=== PATIENT | female | born 1955 | race Caucasian/White ===

== ENCOUNTER 2021-06-11 17:10 | Inpatient (IN) | payer BC ==
[~2021-06-11] VITALS: Ht 152.4 cm; Wt 74.5 kg
[2021-06-11] MEDS ORDERED: LISI20TA26 PO (17:23)
[2021-06-11] MEDS ORDERED: METO50TA15 PO (17:23)
[2021-06-11] MEDS ORDERED: LABETALOL HCL 20 MG/4 ML VIAL IV ONE (17:30)
[2021-06-11] MEDS ORDERED: NITRO DRIP 25000 MCG/D5W 250 ML IV SCH (17:30)
[2021-06-11 17:49] LABS: BASOPHILS % (AUTO) 0 % (0-10); EOSINOPHILS # (AUTO) 0.2 10^3/uL (0.0-0.3); EOSINOPHILS % (AUTO) 3 % (0-10); HEMATOCRIT 42 % (35-52); HEMOGLOBIN 13.6 g/dL (11.5-16.0); LYMPHOCYTES # (AUTO) 1.6 10^3/uL (1.0-4.0); LYMPHOCYTES % (AUTO) 23 % (12-44); MEAN CORPUSCULAR HEMOGLOBIN 27 pg (25-34); MEAN CORPUSCULAR HGB CONC 33 g/dL (32-36); MEAN CORPUSCULAR VOLUME 81 fL (80-99); MEAN PLATELET VOLUME 10.2 fL (9.0-12.2); MONOCYTES # (AUTO) 0.7 10^3/uL (0.0-1.0); MONOCYTES % (AUTO) 10 % (0-12); NEUTROPHILS # (AUTO) 4.6 10^3/uL (1.8-7.8); NEUTROPHILS % (AUTO) 64 % (42-75); PLATELET COUNT 331 10^3/uL (130-400); WHITE BLOOD COUNT 7.2 10^3/uL (4.3-11.0)
[2021-06-11 17:55] LABS: ALBUMIN 3.8 GM/DL (3.2-4.5); POTASSIUM 4.2 MMOL/L (3.6-5.0)
[2021-06-11 17:56] LABS: CALCIUM 9.2 MG/DL (8.5-10.1)
[2021-06-11 17:57] LABS: TOTAL PROTEIN 6.6 GM/DL (6.4-8.2)
[2021-06-11 17:59] LABS: BILIRUBIN,TOTAL 0.2 MG/DL (0.1-1.0)
[2021-06-11 18:01] LABS: CREATININE SERUM 1.82 MG/DL (0.60-1.30)
--- NOTE | 2021-06-11 18:11 | ED Cardiac General ---
History of Present Illness General Chief Complaint: Cardiac/General Problems Stated Complaint: HIGH BLOOD PRESSURE Nursing Triage Note: SENT OVER FROM [facility] IN HYPERTENSIVE CRISIS BP 240/120, 260/110/, 280/120, 300/140. PT DENIES SX E STATES SHE WENT THERE TO HAVE HER MEDS REFILLED BECUASE SHE HAS BEEN OUT OF HER BP MEDS LISINOPRIL AND METOPROPOL X4 DAYS. History of Present Illness Date Seen by Provider: Jun 11, 2021 Time Seen by Provider: 18:11 Initial Comments 65 yr F with PMH of HTN, with home medications of lisinopril 20 mg and metoprolol which she has run out of for the past couple of weeks, and has been sent over from urgent care for high blood pressure. In the ER the blood BP was unreadable and above 280 systolic. She last refilled BP meds on April 22. Denies syncope, chest pain, SOB, palpitations, abdominal pain, nausea, vomiting, visual disturbances. Allergies and Home Medications Allergies Coded Allergies: No Known Drug Allergies (Unverified , 06/11/21) Patient Home Medication List Home Medication List Reviewed: Yes Lisinopril (Lisinopril) 20 Mg Tablet, (Reported) Entered as Reported by: REILLY DUQUE on 06/11/211722 Last Action: New Order Metoprolol Tartrate (Metoprolol Tartrate) 50 Mg Tablet, (Reported) Entered as Reported by: REILLY DUQUE on 06/11/211722 Last Action: New Order Review of Systems Review of Systems Constitutional: other (elevated BP) EENTM: No Symptoms Reported Respiratory: No Symptoms Reported Cardiovascular: No Symptoms Reported Gastrointestinal: No Symptoms Reported Genitourinary: No Symptoms Reported Musculoskeletal: no symptoms reported Skin: no symptoms reported Psychiatric/Neurological: No Symptoms Reported Endocrine: No Symptoms Reported Hematologic/Lymphatic: No Symptoms Reported Past Nkafupc-Uiutnv-Ppmkfp Hx Patient Social History Smoking Status: Former Smoker Substance use?: No Alcohol Use?: No Immunizations Up To Date 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 oz. 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 Norm as Tested Skin: Normal Color Progress/Results/Core Measures Results/Orders Lab Results Laboratory Tests Test 06/11/21 17:28 Range/Units White Blood Count 7.2 4.3-11.0 10^3/uL Red Blood Count 5.14 H 3.80-5.11 10^6/uL Hemoglobin 13.6 11.5-16.0 g/dL Hematocrit 42 35-52 % Mean Corpuscular Volume 81 80-99 fL Mean Corpuscular Hemoglobin 27 25-34 pg Mean Corpuscular Hemoglobin Concent 33 32-36 g/dL Red Cell Distribution Width 14.3 10.0-14.5 % Platelet Count 331 130-400 10^3/uL Mean Platelet Volume 10.2 9.0-12.2 fL Immature Granulocyte % (Auto) 0 % Neutrophils (%) (Auto) 64 42-75 % Lymphocytes (%) (Auto) 23 12-44 % Monocytes (%) (Auto) 10 0-12 % Eosinophils (%) (Auto) 3 0-10 % Basophils (%) (Auto) 0 0-10 % Neutrophils # (Auto) 4.6 1.8-7.8 10^3/uL Lymphocytes # (Auto) 1.6 1.0-4.0 10^3/uL Monocytes # (Auto) 0.7 0.0-1.0 10^3/uL Eosinophils # (Auto) 0.2 0.0-0.3 10^3/uL Basophils # (Auto) 0.0 0.0-0.1 10^3/uL Immature Granulocyte # (Auto) 0.0 0.0-0.1 10^3/uL Sodium Level 140 135-145 MMOL/L Potassium Level 4.2 3.6-5.0 MMOL/L Chloride Level 106 98-107 MMOL/L Carbon Dioxide Level 20 L 21-32 MMOL/L Anion Gap 14 5-14 MMOL/L Blood Urea Nitrogen 28 H 7-18 MG/DL Creatinine 1.82 H 0.60-1.30 MG/DL Estimat Glomerular Filtration Rate 31 BUN/Creatinine Ratio 15 Glucose Level 102 70-105 MG/DL Calcium Level 9.2 8.5-10.1 MG/DL Corrected Calcium 9.4 8.5-10.1 MG/DL Total Bilirubin 0.2 0.1-1.0 MG/DL Aspartate Amino Transf (AST/SGOT) 22 5-34 U/L Alanine Aminotransferase (ALT/SGPT) 24 0-55 U/L Alkaline Phosphatase 71 40-136 U/L B-Type Natriuretic Peptide 266.8 H <100.0 PG/ML Total Protein 6.6 6.4-8.2 GM/DL Albumin 3.8 3.2-4.5 GM/DL TSH Coleman Testing 1.15 0.35-4.94 UIU/ML My Orders Orders - KEYANA BROWN MD Lisinopril Tablet (Zestril Tablet) (06/11/21 18:45) Medications Given in ED Current Medications Medications Dose Ordered Sig/Lisa Route Start Time Stop Time Status Last Admin Dose Admin Labetalol HCl 20 mg ONCE ONCE IV 06/11/21 17:30 06/11/21 17:31 DC 06/11/21 17:33 20 MG Vital Signs/I&O 06/11/21 06/11/21 06/11/21 17:10 17:46 17:53 Temp 36.3 Pulse 70 83 77 Resp 16 B/P (MAP) /132 219/94 211/95 Pulse Ox 98 O2 Delivery Room Air Blood Pressure Mean: 133 Progress Progress Note : Progress Note 1. HYPERTENSIVE URGENCY: - Labetalol 20mg iv and Nitro drip in ER - Lisinopril 20mg oral added - Nitro stopped since systolic BP is now 190, and do not want to drop BP much more than 25%. - Discussed with Dr Figueroa and admitted to observation - No symptoms at this time. Initial ECG Impression Date: Jun 11, 2021 Initial ECG Impression Time: 17:19 Initial ECG Rate: 79 Initial ECG Rhythm: Normal Sinus Initial ECG Intervals: Normal Initial ECG Impression: Nonspecific Changes Departure Communication (Admissions) Time/Spoke to Admitting Phy: 18:[address] Luke,man and accepted to observation unit with telemetry Impression Primary Impression: Hypertensive urgency Disposition: 30 STILL A PATIENT Condition: Stable Admissions Decision to Admit Reason: Admit from ER (General) Decision to Admit/Date: Jun 11, 2021 Time/Decision to Admit Time: 18:30 KEYANA BROWN MD Jun 11, 2021 18:11
[2021-06-11 18:23] LABS: TSH (THYROID ANALYZER) 1.15 UIU/ML (0.35-4.94)
[2021-06-11] MEDS ORDERED: lisINopril 20 MG (PRINIVIL) TABLET PO ONE (18:45)
[2021-06-11 20:21] VITALS: BP 235/102
[2021-06-11] MEDS: NITRO DRIP 25000 MCG/D5W 250 ML IV SCH ×2 (20:59→22:05)
[2021-06-11] MEDS ORDERED: MELATONIN 3 MG TABLET PO PRN (21:00)
[2021-06-11] MEDS ORDERED: diphenhydrAMINE 25 MG TAB (BENADRYL) PO PRN (21:00)
[2021-06-11] MEDS ORDERED: ANTACID SUSP 30 ML UDC (MYLANTA) PO PRN (21:00)
[2021-06-11] MEDS ORDERED: ONDANSETRON 4 MG (ZOFRAN) ORAL DISSOLVE TAB PO PRN (21:00)
[2021-06-11] MEDS ORDERED: polyethylene glycoL POWDER 17 GM (MIRALAX) PACK PO PRN (21:00)
[2021-06-11] MEDS ORDERED: ACETAMINOPHEN 325 MG TABLET PO PRN (21:00)
[2021-06-11] MEDS ORDERED: ONDANSETRON 4 MG/2 ML (SDV) Z0FRAN IV PRN (21:00)
[2021-06-11] MEDS ORDERED: ENOXAPARIN 40 MG/0.4 ML (LOVENOX) SYR SC SCH (21:00)
[2021-06-11] MEDS ORDERED: ONDANSETRON 4 MG/2 ML (SDV) Z0FRAN ONE (21:49)
--- NOTE | 2021-06-11 21:54 | Tele-ICU Progress Note ---
Progress Note 65F with HTN who has been out of lisinopril and metoprolol x4 days, went to clinic for refil and reported to have BP >280 systolic. Sent to ED. Has been asymptomatic. - HTN urgency: currently on nitro gtt, will change to cardene for goal SBP 170- 190. Continue home lisinopril and labetalol. - MANE vs CKD: baseline unknown. Check UA with micro. Trend renal function, UOP. Focused Exam Height, Weight, BMI Height: '" Weight: lbs. oz. kg; 31.00 BMI Method: ALEX HODGE MD Jun 11, 2021 21:54
[2021-06-11] MEDS ORDERED: niCARdipine IV FOR DRIP 50 MG KIT ONE (21:58)
[2021-06-11] MEDS ORDERED: NS (IVPB) 250 ML ONE (21:58)
[2021-06-11] MEDS ORDERED: meTOprolol TARTRATE 25 MG (LOPRESSOR) TABLET ONE (21:59)
[2021-06-11 22:04] LABS: BILIRUBIN,URINE NEGATIVE (NEGATIVE); CLARITY,URINE CLEAR; COLOR,URINE YELLOW; GLUCOSE, URINE (UA) NEGATIVE (NEGATIVE); KETONES,URINE NEGATIVE (NEGATIVE); LEUKOCYTE ESTERASE ,URINE NEGATIVE (NEGATIVE); NITRITE,URINE NEGATIVE (NEGATIVE); PROTEIN,URINE 3+ (NEGATIVE)
[2021-06-11] MEDS: meTOprolol TARTRATE 25 MG (LOPRESSOR) TABLET PO SCH (22:04)
[2021-06-11] MEDS: niCARdipine IV 50 MG in NS (IVPB) 230 ML IV SCH (22:05)
[2021-06-11] MEDS: lisINopril 20 MG (PRINIVIL) TABLET PO SCH (22:11)
[2021-06-11 22:15] LABS: BACTERIA,URINE TRACE /HPF
[2021-06-12 04:28] LABS: BASOPHILS % (AUTO) 0 % (0-10); EOSINOPHILS # (AUTO) 0.1 10^3/uL (0.0-0.3); EOSINOPHILS % (AUTO) 1 % (0-10); HEMATOCRIT 40 % (35-52); HEMOGLOBIN 12.9 g/dL (11.5-16.0); LYMPHOCYTES # (AUTO) 1.6 10^3/uL (1.0-4.0); LYMPHOCYTES % (AUTO) 17 % (12-44); MEAN CORPUSCULAR HEMOGLOBIN 27 pg (25-34); MEAN CORPUSCULAR HGB CONC 32 g/dL (32-36); MEAN CORPUSCULAR VOLUME 82 fL (80-99); MEAN PLATELET VOLUME 10.2 fL (9.0-12.2); MONOCYTES # (AUTO) 0.7 10^3/uL (0.0-1.0); MONOCYTES % (AUTO) 8 % (0-12); NEUTROPHILS # (AUTO) 6.6 10^3/uL (1.8-7.8); NEUTROPHILS % (AUTO) 73 % (42-75); PLATELET COUNT 291 10^3/uL (130-400); WHITE BLOOD COUNT 9.1 10^3/uL (4.3-11.0)
[2021-06-12 04:52] LABS: POTASSIUM 4.2 MMOL/L (3.6-5.0)
[2021-06-12 04:53] LABS: CALCIUM 8.9 MG/DL (8.5-10.1)
[2021-06-12 04:57] LABS: CREATININE SERUM 1.67 MG/DL (0.60-1.30)
[2021-06-12 05:13] LABS: FREE T4 (FREE THYROXINE) 0.97 NG/DL (0.70-1.48)
[2021-06-12] MEDS: POTASSIUM CL 10MEQ/50ML IVPB 50 ML IV SCH (05:14)
[2021-06-12] MEDS: KCL 20 MEQ TAB (K-DUR) PO SCH (05:15)
[2021-06-12] MEDS: MAGNESIUM 1 GM/100 ML IVPB 100 ML IV SCH (05:15)
[2021-06-12] MEDS: niCARdipine IV 50 MG in NS (IVPB) 230 ML IV SCH ×2 (07:55→19:58)
[2021-06-12] MEDS: lisINopril 20 MG (PRINIVIL) TABLET PO SCH ×2 (08:14→19:55)
[2021-06-12] MEDS: ENOXAPARIN INJECTION 30 MG/0.3 ML SYR SC SCH (08:14)
[2021-06-12] MEDS: meTOprolol TARTRATE 25 MG (LOPRESSOR) TABLET PO SCH ×2 (08:14→19:55)
[2021-06-12] MEDS ORDERED: ASPI-1238 PO (09:42)
--- NOTE | 2021-06-12 09:42 | Tele-ICU Progress Note ---
Subjective Date Seen by a Provider: Jun 12, 2021 Time Seen by a Provider: 11:30 Subjective/Events-last exam 65-year-old female with past medical history of hypertension on lisinopril and metoprolol apparently ran out of her medications about 4 days prior to the admission and she went to a clinic to get refilled and her blood pressure was checked and it is way too high and she is referred to the emergency room where her blood pressure is markedly abnormal. However she denies any headache nausea vomiting chest pain. 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 A cardiology consultation has been requested. She is on nicardipine drip and blood pressure is improving. Review of Systems ROS PER RN Sepsis Event Evaluation Height, Weight, BMI Height: '" Weight: lbs. oz. kg; 31.81 BMI Method: Exam Exam Patient acknowledged, consented, and participated in this virtual visit which was conducted using real time audio/video Vital Signs Date Time Temp Pulse Resp B/P (MAP) Pulse Ox O2 Delivery O2 Flow Rate FiO2 06/12/21 09:00 85 9 153/60 95 Room Air 06/12/21 08:00 75 34 150/70 96 Room Air 06/12/21 08:00 Room Air 06/12/21 07:53 36.9 06/12/21 07:00 79 06/12/21 07:00 79 181/90 93 Room Air 06/12/21 06:00 71 12 169/89 92 Room Air 06/12/21 05:00 77 11 190/79 96 Room Air 06/12/21 04:06 Room Air 06/12/21 04:00 72 10 197/87 96 Room Air 06/12/21 03:17 36.7 Room Air 06/12/21 03:00 74 163/88 Room Air 06/12/21 02:00 77 11 139/75 96 Room Air 06/12/21 01:00 71 06/12/21 01:00 75 13 203/92 94 Room Air 06/12/21 00:17 Room Air 06/12/21 00:00 74 25 189/103 94 Room Air 06/11/21 23:00 72 19 192/82 95 Room Air 06/11/21 22:00 82 21 167/71 95 Room Air 06/11/21 21:00 77 06/11/21 21:00 36.7 06/11/21 21:00 Room Air 06/11/21 20:21 75 16 235/102 97 Room Air 06/11/21 18:48 78 196/92 06/11/21 17:53 77 211/95 06/11/21 17:46 83 219/94 06/11/21 17:10 36.3 70 16 /132 98 Room Air I & O 06/12/21 07:00 Intake Total 540 ml Output Total 1400 ml Balance -860 ml Height & Weight Height: '" Weight: lbs. oz. 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 Accelerated hypertension 2. Acute versus chronic kidney disease due to hypertension likely Recommendations 1. Continue nicardipine to control blood pressure however will wean as very start her on oral antihypertensive medications. 2. Continue monitor her BUN/creatinine and hydrate the patient. 3. DVT prophylaxis. Critical Care: Critically Ill Patient Time spent with patient (mins): 15 RAJINDER GARCES MD Jun 12, 2021 09:42
[2021-06-12 11:12] LABS: TRIGLYCERIDES 212 MG/DL (<150); VLDL CHOLESTEROL 42 MG/DL (5-40)
[2021-06-12 11:17] LABS: CHOLESTEROL 315 MG/DL (< 200)
[2021-06-12 11:18] LABS: HDL CHOLESTEROL 60 MG/DL (40-60)
--- NOTE | 2021-06-12 12:13 | History & Physical ---
VALERIE KIMBROUGH MED STUDENT 06/12/21 1213: History of Present Illness History of Present Illness Reason for visit/HPI CC: hypertensive emergency HPI: This is Miss Foote, a 65 yo F, who presented to the urgent care yesterday because she had ran out of her lisinopril and was needing a new prescription for it. Her previous primary care physician was Dr. Kelly and she has not gotten a new one since she thought she was moving out of town. She has been getting the lisinopril and metoprolol prescriptions from urgent every month. While checking her vitals, her systolic blood pressure was in the 280s, diastolic was unknown. With this high blood pressure she was sent to the ED, where her blood pressure was 211/95. She was subsequently admitted to the ICU for hypertensive emergency. She was started on a nicardipine drip for further control. At that time, she was asymptomatic. Pt is still denying any headaches, dizziness, blurry vision, vision changes, chest pain, SOB, palpitations, cough. Date of Admission Jun 12, 2021 at 10:35 Date Seen by a Provider: Jun 12, 2021 Time Seen by a Provider: 09:30 I consulted on this patient on 06/12/21 12:03 Attending Physician Sylwia Corbett DO Admitting Physician No,Local Physician Consult Allergies and Home Medications Allergies Coded Allergies: No Known Drug Allergies (Unverified , 06/11/21) Patient Home Medication List Aspirin (Aspirin EC) 81 Mg Tablet.dr, 81 MG PO DAILY, (Reported) Entered as Reported by: VALDO XIONG on 06/12/21 0942 Last Action: Reviewed Lisinopril (Lisinopril) 20 Mg Tablet, 20 MG PO BID, (Reported) Entered as Reported by: REILLY DUQUE on 06/11/211722 Last Action: Reviewed Metoprolol Tartrate (Metoprolol Tartrate) 50 Mg Tablet, 50 MG PO BID, (Reported) Entered as Reported by: REILLY DUQUE on 06/11/211722 Last Action: Reviewed Past Aqkyewz-Yeldnl-Xftvag Hx Patient Social History Living Status: appropriate 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 ) Tobacco Use?: No Smoking Status: Former Smoker Use of E-Cig and/or Vaping dev: No Substance use?: No Alcohol Use?: No Pt feels they are or have been: No Immunizations Up To Date Tetanus Booster (TDap): Unknown Hepatitis A: No Hepatitis B: No Current Status status: No status: No Advance Directives: No Communicates: Verbally Primary Language: Indian Preferred Spoken Language: Indian Is interpretation needed?: No Sensory deficits: Vision impairment, Hearing impairment Implanted or Applied Medical D: None Past Medical History Currently Using CPAP: No Currently Using BIPAP: No Hypertension Arthritis Hearing Impairment: Hard of Hearing Family Medical History Diabetes (mother ) Review of Systems Constitutional: No chills, No diaphoresis, No dizziness, No fever EENTM: hearing loss; No blurred vision, No double vision, No vision loss Respiratory: No cough, No dyspnea on exertion, No short of breath Cardiovascular: No chest pain, No edema, No palpitations Gastrointestinal: No abdominal pain, No constipation, No diarrhea, No nausea, No vomiting Genitourinary: No dysuria, No frequency, No incontinence Musculoskeletal: joint pain (R 5th metacarpal ) Psychiatric/Neurological: No Symptoms Reported Physical Exam Vital Signs Vital Signs - First Documented 06/11/21 17:10 Temp 36.3 Pulse 70 Resp 16 B/P (MAP) /132 Pulse Ox 98 O2 Delivery Room Air Capillary Refill : Less Than 3 Seconds Height, Weight, BMI Height: '" Weight: lbs. oz. kg; 31.81 BMI Method: General Appearance: No Apparent Distress, WD/WN HEENT: PERRL/EOMI, Moist Mucous Membranes; No Scleral Icterus (L), No Scleral Icterus (R) Neck: Full Range of Motion, Normal Inspection, Non Tender; No Lymphadenopathy (L), No Lymphadenopathy (R) Respiratory: Chest Non Tender, Lungs Clear, Normal Breath Sounds, No Respiratory Distress Cardiovascular: Regular Rate, Rhythm, No Murmur Gastrointestinal: Normal Bowel Sounds, Non Tender, Soft Extremity: Normal Capillary Refill Neurologic/Psychiatric: Alert, Oriented x3, No Motor/Sensory Deficits, Normal Mood/Affect Skin: Normal Color, Warm/Dry Lymphatic: No Adenopathy Assessment/Plan Assessment and Plan Assessment - Hypertensive emergency - Acute kidney injury - Hyperlipidemia Plan - Echo - Continue to decrease nicardipine gtt as tolerated - Consult cardiology, appreciate recommendations - Bilateral renal ultrasound - Bilateral renal artery ultrasound - Pending lab results: HgbA1c, PTH, Free T3, cortisol - New diagnosis of hyperlipidemia Admission Diagnosis Hypertensive Emergency SYLWIA CORBETT DO 06/13/21 0635: History of Present Illness History of Present Illness Reason for visit/HPI Chief complaint: Hypertensive emergency History of present illness: 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 Mike Kelly before he retired several years ago and has since been getting her refills at [facility] urgent care who presented for refills and patient was found to have such severe hypertension she was sent to the ER. Cardene drip was initiated and still remains infusing at this current time. Creatinine elevation from hypertensive nephropathy will require renal ultrasound and renal artery evaluation. Echocardiogram will be obtained and Dr. Lu will be consulted. Allergies and Home Medications Allergies Coded Allergies: No Known Drug Allergies (Unverified , 06/11/21) Patient Home Medication List Home Medication List Reviewed: Yes Aspirin (Aspirin EC) 81 Mg Tablet.dr, 81 MG PO DAILY, (Reported) Entered as Reported by: VALDO XIONG on 06/12/21 0942 Last Action: Reviewed Lisinopril (Lisinopril) 20 Mg Tablet, 20 MG PO BID, (Reported) Entered as Reported by: REILLY DUQUE on 06/11/211722 Last Action: Reviewed Metoprolol Tartrate (Metoprolol Tartrate) 50 Mg Tablet, 50 MG PO BID, (Reported) Entered as Reported by: REILLY DUQUE on 06/11/211722 Last Action: Reviewed Past Ftoztwl-Nzgfcd-Wcinxl Hx Patient Social History Marrital Status: 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 ) Smoking Status: Former Smoker Substance use?: No Alcohol Use?: No Past Medical History Hypertension Arthritis Hearing Impairment: Hard of Hearing Review of Systems Constitutional: see HPI, malaise, weakness EENTM: no symptoms reported Respiratory: no symptoms reported Cardiovascular: no symptoms reported Gastrointestinal: no symptoms reported Genitourinary: no symptoms reported Musculoskeletal: no symptoms reported Skin: no symptoms reported Psychiatric/Neurological: No Symptoms Reported All Other Systems Reviewed Negative Unless Noted: Yes Physical Exam General Appearance: No Apparent Distress, WD/WN Eyes: Bilateral Eye Normal Inspection, Bilateral Eye PERRL, Bilateral Eye EOMI HEENT: PERRL/EOMI, Normal ENT Inspection, Pharynx Normal Neck: Full Range of Motion, Normal Inspection, Non Tender, Supple, Carotid Bruit Respiratory: Chest Non Tender, Lungs Clear, Normal Breath Sounds, No Accessory Muscle Use, No Respiratory Distress Cardiovascular: Regular Rate, Rhythm, No Edema, No Gallop, No JVD, No Murmur, Normal Peripheral Pulses Gastrointestinal: Normal Bowel Sounds, No Organomegaly, No Pulsatile Mass, Non Tender, Soft Back: Normal Inspection, No CVA Tenderness, No Vertebral Tenderness Extremity: Normal Capillary Refill, Normal Inspection, Normal Range of Motion, Non Tender, No Calf Tenderness, No Pedal Edema Neurologic/Psychiatric: Alert, Oriented x3, No Motor/Sensory Deficits, Normal Mood/Affect Skin: Normal Color, Warm/Dry Lymphatic: No Adenopathy Assessment/Plan Assessment and Plan Assessment: Hypertensive urgency Acute kidney injury Presumed chronic kidney disease from hypertension Hyperlipidemia Plan: Cardiology consult Renal ultrasound with renal artery evaluation Echo Cardene drip Problems: (1) Hypertensive urgency Assessment & Plan: Her blood pressure is starting to improve with resumption of her outpatient oral medication and nicardipine infusion. I will start her on amlodipine 5 mg daily with the first dose to be given now. Hopefully, we can wean off the nicardipine infusion overnight. If we can get her off the drip and her blood pressure remains controlled, she may be ready for discharge by to [place]. (2) Acute kidney injury superimposed on chronic kidney disease Assessment & Plan: Her baseline renal function is only known to me. This will need to be monitored longitudinally. (3) Familial hypercholesterolemia Assessment & Plan: Her LDL level is markedly elevated consistent with probable familial hypercholesterolemia. I will start her on rosuvastatin. (4) Aortic regurgitation Assessment & Plan: She was not aware of any valvular heart disease in the past. Her echocardiogram showed moderate aortic regurgitation. I suspect once her blood pressure is improved, this could be mild aortic regurgitation. Nonetheless, this will need to be followed longitudinally. Admission Diagnosis Admission Status: Inpatient Order (span 2 midnights) Reason for Inpatient Admission: Hypertensive emergency Supervisory-Addendum Brief Verification & Attestation Participated in pt care: history, MDM, physical Personally performed: exam, history, MDM, supervision of care Care discussed with: Medical Student Procedures: n/a Results interpretation: Verified all documentation Verification and Attestation of Medical Student E/M Service A medical student performed and documented this service in my presence. I reviewed and verified all information documented by the medical student and made modifications to such information, when appropriate. I personally performed the physical exam and medical decision making. Sylwia Corbett, Jun 13, 2021,06:35 VALERIE KIMBROUGH MED STUDENT Jun 12, 2021 12:13 SYLWIA CORBETT DO Jun 13, 2021 06:35
--- NOTE | 2021-06-12 12:29 | Diagnostic Imaging Report ---
Indication: Hypertension. Right kidney measures 9.8 x 5.3 x 4.4 cm and left kidney measures 9.7 x 4.3 x 4.3 cm. There appears to be some cortical thinning involving bilateral kidneys. No definite calculi are detected. There is no hydronephrosis. There is a probable cyst in the left kidney approximately 2 cm in size. Renal Doppler evaluation was performed. Velocities within the right and left renal arteries appear to be normal with normal renal artery to aorta ratios. The duplex waveforms appear to be normal. IMPRESSION: 1. Bilateral renal cortical thinning. There is a probable cyst in the left kidney. No hydronephrosis detected. 2. No definite findings to suggest to suggest renal artery stenosis. Dictated by: Dictated on workstation # [id number]
[2021-06-12] MEDS ORDERED: amLODIPine 5 MG (NORVASC) TAB PO ONE (19:00)
--- NOTE | 2021-06-12 19:14 | Consultation-Cardiology ---
HPI-Cardiology Cardiology Consultation: Date of Consultation 06/12/21 Date of Admission 06/11/21 Attending Physician Sylwia Pérez DO Admitting Physician Wilma,Local Physician Consulting Physician JAMES BAKER JR, MD HPI: Time Seen by a Provider: 19:09 Chief Complaint: Reason for consultation: Hypertensive urgency. I had the pleasure of seeing Dary in the intensive care unit at [facility] in [place], [place] today. She has a longstanding history of hypertension. The last time she saw her primary provider (walk-in clinic) her medication was adjusted due to persistent hypertension. However, about 4 days ago she ran out of one of her blood pressure medications. She went back to the walk-in clinic to get a refill and her blood pressure was found to be over 200 mmHg systolic and she was sent to the emergency room for further evaluation. She was again found to have markedly elevated blood pressures and was started on nicardipine infusion and admitted to the intensive care unit. Her lisinopril and metoprolol were restarted. Her blood pressures have started to trend down wards. She denies chest discomfort, dyspnea, paroxysmal nocturnal dyspnea, orthopnea, palpitations, lightheadedness, syncope, or lower extremity edema. She denies a headache or any other neurologic complaints. Certain portions of this document may have been dictated utilizing voice recognition technology. Inherent to this technology, typographical and grammatical errors may exist. As much as I am diligent to identify and correct these mistakes, some errors may remain in the document. Review of Systems-Cardiology Review of Systems Other comments Review of 10 organ systems is as per the history of present illness, otherwise negative. 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 Family Medical History Family Medical History: She does not know of any family history of premature coronary artery disease in first-degree relatives. Allergies and Home Medications Allergies Coded Allergies: No Known Drug Allergies (Unverified , 06/11/21) Patient Home Medication List Home Medication List Reviewed: Yes Aspirin (Aspirin EC) 81 Mg Tablet.dr 81 MG PO DAILY, (Reported) Entered as Reported by: VALDO XIONG on 06/12/21 0929 Last Action: Reviewed Lisinopril (Lisinopril) 20 Mg Tablet, 20 MG PO BID, (Reported) Entered as Reported by: REILLY DUQUE on 06/11/211722 Last Action: Reviewed Metoprolol Tartrate (Metoprolol Tartrate) 50 Mg Tablet, 50 MG PO BID, (Reported) Entered as Reported by: REILLY DUQUE on 06/11/211722 Last Action: Reviewed Exam Vital Signs Vital Signs Date Time Temp Pulse Resp B/P (MAP) Pulse Ox O2 Delivery O2 Flow Rate FiO2 06/12/21 18:00 88 39 176/75 96 Room Air 06/12/21 16:00 37.5 Physical Exam General: Alert. No acute distress. Well nourished and appears stated age. Eye: Extraocular movements are intact. Conjunctivae are clear. There are no xanthelasma. HENT: Normocephalic. Atraumatic. Carotid pulsations 2/2 without bruits. Neck: Jugular venous pressure does not appear elevated. No thyromegaly appreciated. Respiratory: Lungs are clear to auscultation. Respirations are non-labored. Kate th sounds are equal. Symmetrical chest wall expansion. Cardiovascular: Normal rate. Regular rhythm. No murmur. No gallop. Point of maximal impulse is not appear displaced. Good pulses equal in all extremities. No edema. Gastrointestinal: Soft. Normal bowel sounds. Skin: Skin turgor is normal. There is no pallor. Musculoskeletal: No kyphosis or scoliosis appreciated. Neurologic: Alert and oriented to person, place, time. Cranial nerves 3-12 appear grossly intact. The patient has good motor tone strength in the upper and lower extremities bilaterally. Psychiatric: Cooperative. Appropriate mood & affect. Labs Laboratory Tests Test 06/12/21 04:13 Range/Units White Blood Count 9.1 4.3-11.0 10^3/uL Red Blood Count 4.86 3.80-5.11 10^6/uL Hemoglobin 12.9 11.5-16.0 g/dL Hematocrit 40 35-52 % Mean Corpuscular Volume 82 80-99 fL Mean Corpuscular Hemoglobin 27 25-34 pg Mean Corpuscular Hemoglobin Concent 32 32-36 g/dL Red Cell Distribution Width 14.5 10.0-14.5 % Platelet Count 291 130-400 10^3/uL Mean Platelet Volume 10.2 9.0-12.2 fL Immature Granulocyte % (Auto) 0 % Neutrophils (%) (Auto) 73 42-75 % Lymphocytes (%) (Auto) 17 12-44 % Monocytes (%) (Auto) 8 0-12 % Eosinophils (%) (Auto) 1 0-10 % Basophils (%) (Auto) 0 0-10 % Neutrophils # (Auto) 6.6 1.8-7.8 10^3/uL Lymphocytes # (Auto) 1.6 1.0-4.0 10^3/uL Monocytes # (Auto) 0.7 0.0-1.0 10^3/uL Eosinophils # (Auto) 0.1 0.0-0.3 10^3/uL Basophils # (Auto) 0.0 0.0-0.1 10^3/uL Immature Granulocyte # (Auto) 0.0 0.0-0.1 10^3/uL Sodium Level 142 135-145 MMOL/L Potassium Level 4.2 3.6-5.0 MMOL/L Chloride Level 108 H 98-107 MMOL/L Carbon Dioxide Level 21 21-32 MMOL/L Anion Gap 13 5-14 MMOL/L Blood Urea Nitrogen 25 H 7-18 MG/DL Creatinine 1.67 H 0.60-1.30 MG/DL Estimat Glomerular Filtration Rate 34 BUN/Creatinine Ratio 15 Glucose Level 87 70-105 MG/DL Calcium Level 8.9 8.5-10.1 MG/DL Magnesium Level 2.0 1.6-2.4 MG/DL Triglycerides Level 212 H <150 MG/DL Cholesterol Level 315 H < 200 MG/DL LDL Cholesterol Direct 251 H 1-129 MG/DL VLDL Cholesterol 42 H 5-40 MG/DL HDL Cholesterol 60 40-60 MG/DL Thyroid Stimulating Hormone (TSH) 1.21 0.35-4.94 UIU/ML Free Thyroxine 0.97 0.70-1.48 NG/DL ECG Impression ECG Comment Sinus rhythm with poor R wave progression and probable left ventricular hypertrophy. Diagnosis/Problems Diagnosis/Problems (1) Hypertensive urgency Assessment & Plan: Her blood pressure is starting to improve with resumption of her outpatient oral medication and nicardipine infusion. I will start her on a mlodipine 5 mg daily with the first dose to be given now. Hopefully, we can wean off the nicardipine infusion overnight. If we can get her off the drip and her blood pressure remains controlled, she may be ready for discharge by tomorrow. (2) Aortic regurgitation Assessment & Plan: She was not aware of any valvular heart disease in the past. Her echocardiogram showed moderate aortic regurgitation. I suspect once her blood pressure is improved, this could be mild aortic regurgitation. Nonetheless, this will need to be followed longitudinally. (3) Familial hypercholesterolemia Assessment & Plan: Her LDL level is markedly elevated consistent with probable familial hypercholesterolemia. I will start her on rosuvastatin. (4) Acute kidney injury superimposed on chronic kidney disease Assessment & Plan: Her baseline renal function is only known to me. This will need to be monitored longitudinally. JAMES BAKER JR, MD Jun 12, 2021 19:14
[2021-06-12] MEDS ORDERED: niCARdipine IV FOR DRIP 50 MG KIT ONE (19:15)
[2021-06-12] MEDS ORDERED: NS (IVPB) 250 ML ONE (19:15)
[2021-06-12] MEDS ORDERED: amLODIPine 5 MG (NORVASC) TAB ONE (19:36)
[2021-06-12] MEDS ORDERED: ROSUVASTATIN 20 MG (CRESTOR) TABLET PO SCH (21:00)
[2021-06-13] MEDS: niCARdipine IV 50 MG in NS (IVPB) 230 ML IV SCH (04:29)
[2021-06-13 05:11] LABS: BASOPHILS % (AUTO) 0 % (0-10); EOSINOPHILS # (AUTO) 0.2 10^3/uL (0.0-0.3); EOSINOPHILS % (AUTO) 2 % (0-10); HEMATOCRIT 39 % (35-52); HEMOGLOBIN 12.4 g/dL (11.5-16.0); LYMPHOCYTES # (AUTO) 1.5 10^3/uL (1.0-4.0); LYMPHOCYTES % (AUTO) 22 % (12-44); MEAN CORPUSCULAR HEMOGLOBIN 26 pg (25-34); MEAN CORPUSCULAR HGB CONC 32 g/dL (32-36); MEAN CORPUSCULAR VOLUME 82 fL (80-99); MONOCYTES # (AUTO) 0.6 10^3/uL (0.0-1.0); MONOCYTES % (AUTO) 9 % (0-12); NEUTROPHILS # (AUTO) 4.8 10^3/uL (1.8-7.8); NEUTROPHILS % (AUTO) 67 % (42-75); PLATELET COUNT 278 10^3/uL (130-400); WHITE BLOOD COUNT 7.2 10^3/uL (4.3-11.0)
[2021-06-13 05:23] LABS: POTASSIUM 4.3 MMOL/L (3.6-5.0)
[2021-06-13 05:24] LABS: CALCIUM 8.8 MG/DL (8.5-10.1)
[2021-06-13 05:29] LABS: CREATININE SERUM 1.87 MG/DL (0.60-1.30)
[2021-06-13 05:31] LABS: MAGNESIUM 1.9 MG/DL (1.6-2.4)
[2021-06-13] MEDS: KCL 20 MEQ TAB (K-DUR) PO SCH (05:56)
[2021-06-13] MEDS: POTASSIUM CL 10MEQ/50ML IVPB 50 ML IV SCH (05:56)
[2021-06-13] MEDS: MAGNESIUM 1 GM/100 ML IVPB 100 ML IV SCH (05:56)
[2021-06-13 07:32] LABS: ALBUMIN 3.2 GM/DL (3.2-4.5)
[2021-06-13 07:34] LABS: TOTAL PROTEIN 5.3 GM/DL (6.4-8.2)
[2021-06-13 07:36] LABS: BILIRUBIN,TOTAL 0.3 MG/DL (0.1-1.0)
[2021-06-13 07:40] LABS: BILIRUBIN,DIRECT 0.1 MG/DL (0.0-0.3); BILIRUBIN,INDIRECT 0.2 MG/DL
[2021-06-13] MEDS: meTOprolol TARTRATE 25 MG (LOPRESSOR) TABLET PO SCH (08:24)
[2021-06-13] MEDS: lisINopril 20 MG (PRINIVIL) TABLET PO SCH (08:24)
[2021-06-13] MEDS: ENOXAPARIN INJECTION 30 MG/0.3 ML SYR SC SCH (08:24)
--- NOTE | 2021-06-13 08:50 | Diagnostic Imaging Report ---
Indication: Hypertension PA and lateral views of the chest are obtained. COMPARISON: No previous study is available for comparison at this time. FINDINGS: Heart size and pulmonary vasculature are within normal limits, and the lungs are clear, bilaterally. There is mild aortic atherosclerotic calcification. IMPRESSION: Unremarkable chest. Dictated by: Dictated on workstation # [id number]
[2021-06-13] MEDS ORDERED: amLODIPine 5 MG (NORVASC) TAB PO SCH (09:00)
[2021-06-13] MEDS ORDERED: LISI20TA26 PO (09:30)
[2021-06-13] MEDS ORDERED: ROSU20TA32 PO (09:30)
[2021-06-13] MEDS ORDERED: METO50TA15 PO (09:30)
[2021-06-13] MEDS ORDERED: AMLO-250 PO (09:30)
--- NOTE | 2021-06-13 09:31 | Cardiology Progress Note ---
Progress Note-Cardiology Events since last exam Date Seen by Provider: Jun 13, 2021 Time Seen by Provider: 09:26 Events since last exam I am following her due to hypertensive urgency. Overnight, her nicardipine infusion was weaned to off. She denies chest pain, dyspnea, palpitations, syncope, or ankle edema. She had been on amlodipine in the past but this got stopped because her primary provider told her this could cause issues with her kidney. I have reassured her that amlodipine does not cause renal i nsufficiency. She would like to go home today if possible. Certain portions of this document may have been dictated utilizing voice recognition technology. Inherent to this technology, typographical and grammatical errors may exist. As much as I am diligent to identify and correct these mistakes, some errors may remain in the document. Vitals Last set of Vitals Signs Vital Signs 06/13/21 06/13/21 06/13/21 06:00 08:25 09:00 Temp 36.1 Pulse 81 Resp 22 B/P (MAP) 168/69 Pulse Ox 97 O2 Delivery Room Air Labs Labs Laboratory Tests 06/13/21 04:58 Exam Vital Signs Vital Signs Date Time Temp Pulse Resp B/P (MAP) Pulse Ox O2 Delivery O2 Flow Rate FiO2 06/13/21 09:00 81 168/69 97 Room Air 06/13/21 08:25 36.1 06/13/21 06:00 22 Physical Exam General: Alert. No acute distress. Eye: No xanthelasma. HENT: Normocephalic. Neck: Jugular venous pressure does not appear elevated. Respiratory: Lungs are clear to auscultation. Respirations are non-labored. Breath sounds are equal. Symmetrical chest wall expansion. Cardiovascular: Normal rate. Regular rhythm. No murmur. No gallop. No edema. Gastrointestinal: Soft. Normal bowel sounds. Skin: Warm. Dry. Neurologic: Alert and oriented to person, place, time. Cranial nerves 3-11 grossly intact. Psychiatric: Cooperative. Appropriate mood & affect. Labs Laboratory Tests Test 06/13/21 04:58 Range/Units White Blood Count 7.2 4.3-11.0 10^3/uL Red Blood Count 4.71 3.80-5.11 10^6/uL Hemoglobin 12.4 11.5-16.0 g/dL Hematocrit 39 35-52 % Mean Corpuscular Volume 82 80-99 fL Mean Corpuscular Hemoglobin 26 25-34 pg Mean Corpuscular Hemoglobin Concent 32 32-36 g/dL Red Cell Distribution Width 14.6 H 10.0-14.5 % Platelet Count 278 130-400 10^3/uL Mean Platelet Volume 10.0 9.0-12.2 fL Immature Granulocyte % (Auto) 0 % Neutrophils (%) (Auto) 67 42-75 % Lymphocytes (%) (Auto) 22 12-44 % Monocytes (%) (Auto) 9 0-12 % Eosinophils (%) (Auto) 2 0-10 % Basophils (%) (Auto) 0 0-10 % Neutrophils # (Auto) 4.8 1.8-7.8 10^3/uL Lymphocytes # (Auto) 1.5 1.0-4.0 10^3/uL Monocytes # (Auto) 0.6 0.0-1.0 10^3/uL Eosinophils # (Auto) 0.2 0.0-0.3 10^3/uL Basophils # (Auto) 0.0 0.0-0.1 10^3/uL Immature Granulocyte # (Auto) 0.0 0.0-0.1 10^3/uL Sodium Level 141 135-145 MMOL/L Potassium Level 4.3 3.6-5.0 MMOL/L Chloride Level 109 H 98-107 MMOL/L Carbon Dioxide Level 20 L 21-32 MMOL/L Anion Gap 12 5-14 MMOL/L Blood Urea Nitrogen 26 H 7-18 MG/DL Creatinine 1.87 H 0.60-1.30 MG/DL Estimat Glomerular Filtration Rate 30 BUN/Creatinine Ratio 14 Glucose Level 98 70-105 MG/DL Calcium Level 8.8 8.5-10.1 MG/DL Magnesium Level 1.9 1.6-2.4 MG/DL Total Bilirubin 0.3 0.1-1.0 MG/DL Direct Bilirubin 0.1 0.0-0.3 MG/DL Indirect Bilirubin 0.2 MG/DL Aspartate Amino Transf (AST/SGOT) 18 5-34 U/L Alanine Aminotransferase (ALT/SGPT) 20 0-55 U/L Alkaline Phosphatase 57 40-136 U/L Total Protein 5.3 L 6.4-8.2 GM/DL Albumin 3.2 3.2-4.5 GM/DL Diagnosis/Problems Diagnosis/Problems (1) Hypertensive urgency Assessment & Plan: Her blood pressure has improved but is still high at times. She is now on amlodipine and back on lisinopril and metoprolol. I will increase the dose of metoprolol tartrate and give her an extra dose this morning. From a cardiac standpoint, she can probably be discharged home today. I have asked her to follow-up with me in my office in 1 month. I have taken the liberty of sending prescriptions for lisinopril, metoprolol titrate, amlodipine and rosuvastatin to her outpatient pharmacy. (2) Aortic regurgitation Assessment & Plan: Her echocardiogram from this admission showed moderate aortic regurgitation. I suspect that once her blood pressure is improved, she will probably just have mild aortic regurgitation. Nonetheless, this will need to be followed longitudinally. (3) Familial hypercholesterolemia Assessment & Plan: Her LDL level is markedly elevated consistent with probable familial hypercholesterolemia. I started her on rosuvastatin. (4) Acute kidney injury superimposed on chronic kidney disease Assessment & Plan: Her baseline renal function is unknown to me. This will need to be monitored longitudinally. JAMES BAKER JR, MD Jun 13, 2021 09:31
[2021-06-13] MEDS ORDERED: meTOprolol TARTRATE 25 MG (LOPRESSOR) TABLET PO NR (09:42)
[2021-06-13] MEDS ORDERED: CLN.1T PO (11:58)
--- NOTE | 2021-06-13 11:59 | Discharge Summary ---
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 Mike Kelly before he retired several years ago and has since been getting her refills at [facility] who presented for refills and patient was found to have such severe hypertension she was sent to the ER. Cardene drip was initiated and still remains infusing at this current time. Creatinine elevation from hypertensive nephropathy will require renal ultrasound and renal artery evaluation. Echocardiogram will be obtained and Dr. Lu will be consulted. Discharge Summary Discharge Physical Examination Allergies: Coded Allergies: No Known Drug Allergies (Unverified , 06/11/21) Vitals & I&Os Vital Signs Date Time Temp Pulse Resp B/P (MAP) Pulse Ox O2 Delivery O2 Flow Rate FiO2 06/13/21 13:15 06/13/21 12:00 Room Air 06/13/21 12:00 37.6 06/13/21 12:00 70 95 06/13/21 06:00 22 General Appearance: Alert, Oriented X3, Cooperative Respiratory: Clear to Auscultation Cardiovascular: Regular Rate Neuro: Normal Gait, Normal Speech, Strength at 5/5 X4 Ext Psych/Mental Status: Mental Status NL Hospital Course Was the Problem List Reviewed?: Yes Hospital course: Patient had an uneventful hospital course after she was admitted for hypertensive urgency/emergency. Acute kidney injury managed with IV fluids. Renal ultrasound with renal artery evaluation showed no stenosis essential hypertension no evidence of secondary hypertension. Cardiology was consulted based on aortic valve disease but could very well be due to elevated blood pressure that will be followed up by him. Statin treatment indicated due to cholesterol 325. Borderline diabetes prompted dietary change recommendations. She will establish her care with me for close monitoring. Labs (last 24 hrs) Laboratory Tests 06/11/21 17:23: Urine Color YELLOW, Urine Clarity CLEAR, Urine pH 6.0, Urine Specific [place] >=1.030, Urine Protein 3+H, Urine Glucose (UA) NEGATIVE, Urine Ketones NEGATIVE, Urine Nitrite NEGATIVE, Urine Bilirubin NEGATIVE, Urine Urobilinogen 0.2, Urine Leukocyte Esterase NEGATIVE, Urine RBC (Auto) 2+H, Urine RBC 2-5H, Urine WBC 10- 25H, Urine Squamous Epithelial Cells NONE, Urine Renal Epithelial Cells NONE, Urine Crystals NONE, Urine Bacteria TRACE, Urine Casts NONE, Urine Mucus SMALLH, Urine Culture Indicated NO 06/11/21 17:28: White Blood Count 7.2, Red Blood Count 5.14H, Hemoglobin 13.6, Hematocrit 42, Mean Corpuscular Volume 81, Mean Corpuscular Hemoglobin 27, Mean Corpuscular Hemoglobin Concent 33, Red Cell Distribution Width 14.3, Platelet Count 331, Mean Platelet Volume 10.2, Immature Granulocyte % (Auto) 0, Neutrophils (%) (Auto) 64, Lymphocytes (%) (Auto) 23, Monocytes (%) (Auto) 10, Eosinophils (%) (Auto) 3, Basophils (%) (Auto) 0, Neutrophils # (Auto) 4.6, Lymphocytes # (Auto) 1.6, Monocytes # (Auto) 0.7, Eosinophils # (Auto) 0.2, Basophils # (Auto) 0.0, Immature Granulocyte # (Auto) 0.0, Sodium Level 140, Potassium Level 4.2, Chloride Level 106, Carbon Dioxide Level 20L, Anion Gap 14, Blood Urea Nitrogen 28H, Creatinine 1.82H, Estimat Glomerular Filtration Rate 31, BUN/Creatinine Ratio 15, Glucose Level 102, Calcium Level 9.2, Corrected Calcium 9.4, Total Bilirubin 0.2, Aspartate Amino Transf (AST/SGOT) 22, Alanine Aminotransferase (ALT/SGPT) 24, Alkaline Phosphatase 71, B-Type Natriuretic Peptide 266.8H, Total Protein 6.6, Albumin 3.8, TSH [place] Testing 1.15 06/12/21 04:13: White Blood Count 9.1, Red Blood Count 4.86, Hemoglobin 12.9, Hematocrit 40, Mean Corpuscular Volume 82, Mean Corpuscular Hemoglobin 27, Mean Corpuscular Hemoglobin Concent 32, Red Cell Distribution Width 14.5, Platelet Count 291, Mean Platelet Volume 10.2, Immature Granulocyte % (Auto) 0, Neutrophils (%) (Auto) 73, Lymphocytes (%) (Auto) 17, Monocytes (%) (Auto) 8, Eosinophils (%) (Auto) 1, Basophils (%) (Auto) 0, Neutrophils # (Auto) 6.6, Lymphocytes # (Auto) 1.6, Monocytes # (Auto) 0.7, Eosinophils # (Auto) 0.1, Basophils # (Auto) 0.0, Immature Granulocyte # (Auto) 0.0, Sodium Level 142, Potassium Level 4.2, Chloride Level 108H, Carbon Dioxide Level 21, Anion Gap 13, Blood Urea Nitrogen 25H, Creatinine 1.67H, Estimat Glomerular Filtration Rate 34, BUN/Creatinine Ratio 15, Glucose Level 87, Calcium Level 8.9, Mean Blood Glucose 126, Hemoglobin A1c 6.0H, Magnesium Level 2.0, Triglycerides Level 212H, Cholesterol Level 315H, LDL Cholesterol Direct 251H, VLDL Cholesterol 42H, HDL Cholesterol 60, Thyroid Stimulating Hormone (TSH) 1.21, Free Thyroxine 0.97, Free Triiodothyronine 2.73, Parathyroid Hormone (Intact) 310.3H, Calcium (PTH Intact) 9.1, Total Cortisol 3.7 06/13/21 04:58: White Blood Count 7.2, Red Blood Count 4.71, Hemoglobin 12.4, Hematocrit 39, Mean Corpuscular Volume 82, Mean Corpuscular Hemoglobin 26, Mean Corpuscular Hemoglobin Concent 32, Red Cell Distribution Width 14.6H, Platelet Count 278, Mean Platelet Volume 10.0, Immature Granulocyte % (Auto) 0, Neutrophils (%) (Auto) 67, Lymphocytes (%) (Auto) 22, Monocytes (%) (Auto) 9, Eosinophils (%) (Auto) 2, Basophils (%) (Auto) 0, Neutrophils # (Auto) 4.8, Lymphocytes # (Auto) 1.5, Monocytes # (Auto) 0.6, Eosinophils # (Auto) 0.2, Basophils # (Auto) 0.0, Immature Granulocyte # (Auto) 0.0, Sodium Level 141, Potassium Level 4.3, Chloride Level 109H, Carbon Dioxide Level 20L, Anion Gap 12, Blood Urea Nitrogen 26H, Creatinine 1.87H, Estimat Glomerular Filtration Rate 30, BUN/Creatinine Ratio 14, Glucose Level 98, Calcium Level 8.8, Total Bilirubin 0.3, Aspartate Amino Transf (AST/SGOT) 18, Alanine Aminotransferase (ALT/SGPT) 20, Alkaline Phosphatase 57, Total Protein 5.3L, Albumin 3.2, Magnesium Level 1.9, Direct Bilirubin 0.1, Indirect Bilirubin 0.2 Microbiology 06/11/21 MRSA Screen - Final, Complete MRSA not isolated Pending Labs Microbiology Date/Time Source Procedure Growth Status 06/11/21 21:20 Nasal MRSA Screen - Final MRSA not isolated Complete Laboratory Tests 06/11/21 17:23: Urine Color YELLOW, Urine Clarity CLEAR, Urine pH 6.0, Urine Specific [place] >=1.030, Urine Protein 3+, Urine Glucose (UA) NEGATIVE, Urine Ketones NEGATIVE, Urine Nitrite NEGATIVE, Urine Bilirubin NEGATIVE, Urine Urobilinogen 0.2, Urine Leukocyte Esterase NEGATIVE, Urine RBC (Auto) 2+, Urine RBC 2-5, Urine WBC 10- 25, Urine Squamous Epithelial Cells NONE, Urine Renal Epithelial Cells NONE, Urine Crystals NONE, Urine Bacteria TRACE, Urine Casts NONE, Urine Mucus SMALL, Urine Culture Indicated NO 06/11/21 17:28: White Blood Count 7.2, Red Blood Count 5.14, Hemoglobin 13.6, Hematocrit 42, Mean Corpuscular Volume 81, Mean Corpuscular Hemoglobin 27, Mean Corpuscular Hemoglobin Concent 33, Red Cell Distribution Width 14.3, Platelet Count 331, Mean Platelet Volume 10.2, Immature Granulocyte % (Auto) 0, Neutrophils (%) (Auto) 64, Lymphocytes (%) (Auto) 23, Monocytes (%) (Auto) 10, Eosinophils (%) (Auto) 3, Basophils (%) (Auto) 0, Neutrophils # (Auto) 4.6, Lymphocytes # (Auto) 1.6, Monocytes # (Auto) 0.7, Eosinophils # (Auto) 0.2, Basophils # (Auto) 0.0, Immature Granulocyte # (Auto) 0.0, Sodium Level 140, Potassium Level 4.2, Chloride Level 106, Carbon Dioxide Level 20, Anion Gap 14, Blood Urea Nitrogen 28, Creatinine 1.82, Estimat Glomerular Filtration Rate 31, BUN/Creatinine Ratio 15, Glucose Level 102, Calcium Level 9.2, Corrected Calcium 9.4, Total Bilirubin 0.2, Aspartate Amino Transf (AST/SGOT) 22, Alanine Aminotransferase (ALT/SGPT) 24, Alkaline Phosphatase 71, B-Type Natriuretic Peptide 266.8, Total Protein 6.6, Albumin 3.8, TSH [place] Testing 1.15 06/12/21 04:13: White Blood Count 9.1, Red Blood Count 4.86, Hemoglobin 12.9, Hematocrit 40, Mean Corpuscular Volume 82, Mean Corpuscular Hemoglobin 27, Mean Corpuscular Hemoglobin Concent 32, Red Cell Distribution Width 14.5, Platelet Count 291, Mean Platelet Volume 10.2, Immature Granulocyte % (Auto) 0, Neutrophils (%) (Auto) 73, Lymphocytes (%) (Auto) 17, Monocytes (%) (Auto) 8, Eosinophils (%) (Auto) 1, Basophils (%) (Auto) 0, Neutrophils # (Auto) 6.6, Lymphocytes # (Auto) 1.6, Monocytes # (Auto) 0.7, Eosinophils # (Auto) 0.1, Basophils # (Auto) 0.0, Immature Granulocyte # (Auto) 0.0, Sodium Level 142, Potassium Level 4.2, Chloride Level 108, Carbon Dioxide Level 21, Anion Gap 13, Blood Urea Nitrogen 25, Creatinine 1.67, Estimat Glomerular Filtration Rate 34, BUN/Creatinine Ratio 15, Glucose Level 87, Calcium Level 8.9, Mean Blood Glucose 126, Hemoglobin A1c 6.0, Magnesium Level 2.0, Triglycerides Level 212, Cholesterol Level 315, LDL Cholesterol Direct 251, VLDL Cholesterol 42, HDL Cholesterol 60, Thyroid Stimulating Hormone (TSH) 1.21, Free Thyroxine 0.97, Free Triiodothyronine 2.73, Parathyroid Hormone (Intact) 310.3, Calcium (PTH Intact) 9.1, Total Cortisol 3.7 06/13/21 04:58: White Blood Count 7.2, Red Blood Count 4.71, Hemoglobin 12.4, Hematocrit 39, Mean Corpuscular Volume 82, Mean Corpuscular Hemoglobin 26, Mean Corpuscular Hemoglobin Concent 32, Red Cell Distribution Width 14.6, Platelet Count 278, Mean Platelet Volume 10.0, Immature Granulocyte % (Auto) 0, Neutrophils (%) (Auto) 67, Lymphocytes (%) (Auto) 22, Monocytes (%) (Auto) 9, Eosinophils (%) (Auto) 2, Basophils (%) (Auto) 0, Neutrophils # (Auto) 4.8, Lymphocytes # (Auto) 1.5, Monocytes # (Auto) 0.6, Eosinophils # (Auto) 0.2, Basophils # (Auto) 0.0, Immature Granulocyte # (Auto) 0.0, Sodium Level 141, Potassium Level 4.3, Chloride Level 109, Carbon Dioxide Level 20, Anion Gap 12, Blood Urea Nitrogen 26, Creatinine 1.87, Estimat Glomerular Filtration Rate 30, BUN/Creatinine Ratio 14, Glucose Level 98, Calcium Level 8.8, Total Bilirubin 0.3, Aspartate Amino Transf (AST/SGOT) 18, Alanine Aminotransferase (ALT/SGPT) 20, Alkaline Phosphatase 57, Total Protein 5.3, Albumin 3.2, Magnesium Level 1.9, Direct Bilirubin 0.1, Indirect Bilirubin 0.2 Discharge Home Medications: Active Scripts Active Clonidine HCl 0.1 Mg Tablet 0.1 Mg PO Q6H PRN Amlodipine Besylate 5 Mg Tablet 5 Mg PO DAILY Rosuvastatin Calcium 20 Mg Tablet 40 Mg PO HS Metoprolol Tartrate 50 Mg Tablet 50 Mg PO BID Lisinopril 20 Mg Tablet 20 Mg PO BID Reported Aspirin EC (Aspirin) 81 Mg Tablet.dr 81 Mg PO DAILY Instructions to patient/family Please see electronic discharge instructions given to patient. Diagnosis/Problems Diagnosis/Problems (1) Hypertensive urgency Assessment & Plan: Her blood pressure is starting to improve with resumption of her outpatient oral medication and nicardipine infusion. I will start her on amlodipine 5 mg daily with the first dose to be given now. Hopefully, we can wean off the nicardipine infusion overnight. If we can get her off the drip and her blood pressure remains controlled, she may be ready for discharge by tomorrow. (2) Acute kidney injury superimposed on chronic kidney disease Assessment & Plan: Her baseline renal function is only known to me. This will need to be monitored longitudinally. (3) Familial hypercholesterolemia Assessment & Plan: Her LDL level is markedly elevated consistent with probable familial hypercholesterolemia. I will start her on rosuvastatin. (4) Aortic regurgitation Assessment & Plan: She was not aware of any valvular heart disease in the past. Her echocardiogram showed moderate aortic regurgitation. I suspect once her blood pressure is improved, this could be mild aortic regurgitation. Nonetheless, this will need to be followed longitudinally. SABRINA CORBETT DO Jun 13, 2021 11:59
[2021-06-13] MEDS ORDERED: meTOprolol TARTRATE 25 MG (LOPRESSOR) TABLET PO SCH (21:00)
== END 2021-06-13 13:15 | disposition home or self-care (01) | DRG 305 ==
LOC: EDUNIT# 17:10 → ER 17:12 → ICU 18:47 → OBSVTOIN 06-12 10:35
PROVIDERS: ADMIT Internal Medicine; ATTEND Internal Medicine
DX: I16.1 Hypertensive emergency (principal); N17.9 Acute kidney failure, unspecified; I12.9 Hypertensive chronic kidney disease with stage 1 through stage 4 chronic kidney disease, or unspecified chronic kidney disease; E11.22 Type 2 diabetes mellitus with diabetic chronic kidney disease; N18.9 Chronic kidney disease, unspecified; R80.9 Proteinuria, unspecified; I10 Essential (primary) hypertension; E78.00 Pure hypercholesterolemia, unspecified; M19.90 Unspecified osteoarthritis, unspecified site; I35.1 Nonrheumatic aortic (valve) insufficiency; Z79.82 Long term (current) use of aspirin; Z79.899 Other long term (current) drug therapy; Z87.891 Personal history of nicotine dependence
CPT/HCPCS: 36415; 71046; 76770; 80048; 80053; 80061; 80076; 81000; 82533; 83036; 83735; 83880; 83970; 84439; 84443; 84481; 85025; 87081; 93005; 93041; 93306; 93975; G0378